=== PATIENT | male | born 1980 | race Caucasian/White ===

== ENCOUNTER 2017-12-01 10:39 | Day surgery (SDC) | payer SELFPAY ==
[~2017-12-01] VITALS: Ht 182.9 cm; Wt 81.0 kg
[2017-12-01] VITALS (8 sets, daily range): BP systolic 102–138; BP diastolic 65–96; PULSE 49–65; TEMP 97.3–98.5
[~2017-12-01 10:39] MED LIST: AMOXICILLIN 50500 MG PO; NO HOME MEDICATIONS; NORCO 325 MG-51 TAB PO; PEN-VEE K250 MG PO; PERCOCET 325 MG1 TA2 PO
[2017-12-01 12:09] LABS: BASO # 0.1 (0.0-0.2); BASO % 0.5 % (0.0-2.0); EOS # 0.3 (0.0-0.7); EOS % 2.8 % (0-4.0); GRAN # 8.2 (1.4-6.5); GRAN % 70.5 % (42.2-75.2); HEMATOCRIT 42.5 % (42.0-52.0); HEMOGLOBIN 15.1 g/dl (13.5-18.0); LYMPH # 1.9 (1.2-3.4); LYMPH % 16.3 % (20.0-51.0); MEAN CELL VOLUME 93 fl (80.0-100.0); MEAN CORPUSCULAR HEMOGLOBIN 33 pg (27.0-31.0); MEAN CORPUSCULAR HGB CONC 36 g/dl (33.0-37.0); MEAN PLATELET VOLUME 9.9 fl (7.4-10.4); MONO # 1.1 (0.1-0.6); MONO % 9.5 % (1.7-9.3); PLATELET COUNT 259 K/mm3 (130-400); RED BLOOD COUNT 4.55 M/mm3 (4.20-5.60); REDCELL DISTRIBUTION WIDTH-CV 12.1 % (11.5-14.5)
[2017-12-01 12:21] LABS: BILIRUBIN,TOTAL 1.3 mg/dL (0.0-1.0); CALCIUM 8.9 mg/dL (8.4-10.2); CREATININE, serum 1.01 mg/dL (0.66-1.25); POTASSIUM 3.8 mmol/L (3.4-5.0); TOTAL PROTEIN 7.6 gm/dL (6.4-8.2)
[2017-12-01 13:27] LABS: COLLECTION METHOD CLEAN CATCH
[2017-12-01 13:34] LABS: MUCOUS Present /lpf; PH 7 (5-8); SQUAMOUS EPITHELIAL 0-2 /hpf; URINE APPEARANCE Clear; URINE BACTERIA None Seen /hpf; URINE BILIRUBIN Negative (NEGATIVE); URINE BLOOD Negative (NEGATIVE); URINE COLOR Yellow; URINE GLUCOSE Negative (NEGATIVE); URINE KETONE Negative (NEGATIVE); URINE LEUKOCYTE ESTERASE Negative (NEGATIVE); URINE NITRATE Negative (NEGATIVE); URINE PROTEIN(semi-quant) Negative (NEGATIVE); URINE UROBILINOGEN Negative (NEGATIVE)
[2017-12-02 01:15] VITALS: BP 119/61; PULSE 50
[2017-12-02 05:29] VITALS: BP 115/57; PULSE 49; TEMP 98
[2017-12-02 09:27] VITALS: BP 119/73; PULSE 66; TEMP 97.4
== END 2017-12-02 10:58 | disposition home or self-care (01) ==
LOC: COL.ER 10:39 → SDCO 15:39 → SURG 15:39 → SDCO 12-02 10:58
PROVIDERS: Family Medicine; Physician Assistant
DX: K35.80 Unspecified acute appendicitis (principal); F17.210 Nicotine dependence, cigarettes, uncomplicated; Z86.14 Personal history of Methicillin resistant Staphylococcus aureus infection
CPT/HCPCS: OP; J0171; J0694; J1100; J1885; J2270; J2310; J2405; J2543; J2704; J3010; J7030; J7120; Q9967

== ENCOUNTER 2018-10-16 22:35 | Emergency (ER) | payer SELFPAY ==
[~2018-10-16] VITALS: Ht 175.3 cm; Wt 86.4 kg
[2018-10-16 22:40] VITALS: TEMP 96.8
[2018-10-17 01:18] LABS: COLLECTION METHOD CLEAN CATCH
[2018-10-17 01:23] LABS: PH 6 (5-8); SQUAMOUS EPITHELIAL None Seen /hpf; URINE APPEARANCE Clear; URINE BACTERIA None Seen /hpf; URINE BILIRUBIN Negative (NEGATIVE); URINE BLOOD 1+ (NEGATIVE); URINE COLOR Colorless; URINE GLUCOSE Negative (NEGATIVE); URINE KETONE Negative (NEGATIVE); URINE LEUKOCYTE ESTERASE Negative (NEGATIVE); URINE NITRATE Negative (NEGATIVE); URINE PROTEIN(semi-quant) Negative (NEGATIVE); URINE RBC None Seen /hpf; URINE UROBILINOGEN Negative (NEGATIVE)
[2018-10-17 01:40] VITALS: BP 115/93; PULSE 78
== END 2018-10-17 01:43 | disposition home or self-care (01) ==
LOC: COL.ER 22:35
PROVIDERS: Nurse Practitioner
DX: S01.81XA Laceration without foreign body of other part of head, initial encounter (principal); S46.911A Strain of unspecified muscle, fascia and tendon at shoulder and upper arm level, right arm, initial encounter; V57.5XXA Driver of pick-up truck or van injured in collision with fixed or stationary object in traffic accident, initial encounter; F17.210 Nicotine dependence, cigarettes, uncomplicated